=== PATIENT | female | born 1960 | race Caucasian/White ===

== ENCOUNTER 2024-06-15 17:03 | Outpatient (RCR) | payer MEDICARE, SELFPAY | END 2024-06-27 23:59 | disposition home or self-care (01) | LOC: GPT 17:03 | PROVIDERS: Visit Provider Orthopaedic Surgery | DX: S52.121D Displaced fracture of head of right radius, subsequent encounter for closed fracture with routine healing (principal); X58.XXXD Exposure to other specified factors, subsequent encounter | CPT/HCPCS: 97110; 97112; 97140; 97161; 97530 ==

== ENCOUNTER 2024-06-28 06:00 | Outpatient (RCR) | payer MEDICARE, SELFPAY | END 2024-07-25 23:59 | disposition home or self-care (01) | LOC: GPT 06:00 | PROVIDERS: Visit Provider Orthopaedic Surgery | DX: S52.121D Displaced fracture of head of right radius, subsequent encounter for closed fracture with routine healing (principal); X58.XXXD Exposure to other specified factors, subsequent encounter | CPT/HCPCS: 97110; 97530 ==

== ENCOUNTER 2024-07-09 19:32 | Emergency (ER) | payer MEDICARE, SELFPAY ==
[2024-07-09 19:39] VITALS: BP 124/76; PULSE 73; RESP 26; TEMP 36.7; O2SAT 93; BMI 40.4
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
[2024-07-09 21:22] LABS: Basophils # 0.1 10^3/uL (0.0-0.1); Basophils % 0.4 %; Eosinophils # 0.1 10^3/uL (0.0-0.8); Eosinophils % 0.3 %; Hematocrit 42.7 % (36-47); Lymphocytes # 3.2 10^3/uL (0.8-4.8); Lymphocytes % 18.1 %; Mean Corpuscular HGB Conc 32.3 g/dL (30-55); Mean Corpuscular Hemoglobin 29.4 pg (27-33); Mean Platelet Volume 11.3 fL (7.4-10.4); Monocytes % 5.5 %; Neutrophils # 13.06 10^3/uL (1.8-7.7); Nucleated Red Blood Cells % 0 %; Platelet Count 275 10^3/cmm (157-399); Red Blood Count 4.69 10^6/uL (3.85-5.65); Red Cell Distribution Width 13.6 % (12.1-15.1); White Blood Count 17.43 10^3/uL (3.29-11.43)
[2024-07-09 21:34] LABS: INR 1.07 (0.8-1.2)
[2024-07-09 21:35] LABS: Partial Thromboplastin Time 25.6 SECONDS (23.9-36.7)
[2024-07-09 21:39] LABS: Alanine Aminotransferase 54 U/L (0-33); Albumin Level 3.8 g/dL (3.5-5.2); Alkaline Phosphatase 128 U/L (35-105); Anion Gap 20.5 (5-19); Aspartate Amino Transferase 78 U/L (0-32); Blood Urea Nitrogen 15 mg/dL (8-23); Calcium 9.1 mg/dL (8.5-10.5); Carbon Dioxide 21 mmol/L (22-29); Chloride 100 mmol/L (98-107); Creatinine Clr Calc Pharmacy 84.0631; Globulin 4.1 g/dL (1.3-4.6); Glomerular Filtration Rate 62.6 mL/min (90-130); Glucose 145 mg/dL (65-115); Osmolality Calculated 289 mOsm/kg (285-295); Potassium 3.5 mmol/L (3.5-5.1); Sodium 138 mmol/L (136-145); Total Bilirubin 0.4 mg/dL (0.15-1.2); Total Protein 7.9 g/dL (6.6-8.7)
[2024-07-09] MEDS: ondansetron 2 mg/ML SDV 2 mL 4 MG IVP (22:11)
[2024-07-09] MEDS: sodium chloride 0.9% 500 ML 999 ML IV (22:13)
[2024-07-09] MEDS: propofol 10 mg/mL SDV 20 mL 100 MG IVP (22:34)
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
[2024-07-09 22:36] VITALS: BP 137/84; PULSE 82; RESP 17; O2SAT 96
[2024-07-09] MEDS: iohexol 350 mg/mL 500 mL Btl (per mL) IV (22:57)
[2024-07-10] MEDS: HYDROMORPHONE HCL 0.5 MG/0.5 ML INJ IVP (00:05)
[2024-07-10 00:30] VITALS: BP 139/87; PULSE 82; RESP 20; O2SAT 100
--- NOTE | 2024-07-10 00:33 | PC.NURSE ---
PT GAVE VERBAL CONSENT TO NURSE FOR CONSCIOUS SEDATION, SECOND NURSE SIGNED.
--- NOTE | 2024-07-10 00:58 | PC.NURSE ---
PT VS PRE PROCEDURE 139/87 100% HR 82 RR 20 DURING PROCEDURE 100/62 96% HR 82 RR 31 POST PROCEDURE 137/84 94 % HR 81 RR 30
[2024-07-10 01:13] VITALS: BP 133/78; PULSE 100; RESP 18; O2SAT 96
== END 2024-07-10 01:15 | disposition short-term general hospital (02) ==
PROVIDERS: Emergency Provider Physician Assistant
DX: S52.502A Unspecified fracture of the lower end of left radius, initial encounter for closed fracture (principal); S52.612A Displaced fracture of left ulna styloid process, initial encounter for closed fracture; S32.401A Unspecified fracture of right acetabulum, initial encounter for closed fracture; V89.2XXA Person injured in unspecified motor-vehicle accident, traffic, initial encounter; S00.03XA Contusion of scalp, initial encounter; S80.211A Abrasion, right knee, initial encounter
CPT/HCPCS: 25535; 36415; 70450; 71260; 72131; 72192; 73100; 73110; 73502; 73562; 74177; 80053; 85025; 85610; 85730; 96374; 96375; 99152; 99285; J1171; J2405; J2704; J7040